=== PATIENT | female | born 1975 | race Caucasian/White ===

== ENCOUNTER → 2017-07-09 | Outpatient (CLI) | payer BC ==
[~2017-07-09] MED LIST: CHOL100010 PO; PRENTAB26 PO
== END | disposition home or self-care (01) ==
LOC: C.PAPS 15:58
PROVIDERS: ATTEND Obstetrics & Gynecology
DX: O09.521 Supervision of elderly multigravida, first trimester (principal); E66.01 Morbid (severe) obesity due to excess calories; Z3A.00 Weeks of gestation of pregnancy not specified

== ENCOUNTER → 2017-07-09 | Outpatient (CLI) | payer BC ==
[2017-07-09 15:43] LABS: BASO % 0.1 %; BASO ABS # 0.01 K/uL (0-0.2); COMPLETE YES; EOS % 2.6 %; HEMATOCRIT 35.4 % (37-47); IG% 0.1 %; LYMPH % 21.1 %; LYMPH ABS # 1.78 K/uL (1.2-3.4); MEAN CELL VOLUME 83.3 fL (80-100); MEAN CORPUSCULAR HEMOGLOBIN 27.1 pg (25-34); MEAN CORPUSCULAR HGB CONC 32.5 g/dl (32-36); MEAN PLATELET VOLUME 10.2 fL (7.4-10.4); MONO % 7.6 %; NEUT % 68.5 %; PLATELET COUNT 273 K/uL (130-400); RED BLOOD COUNT 4.25 M/uL (4.2-5.4); WHITE BLOOD COUNT 8.43 K/uL (4.8-10.8)
[2017-07-09 16:34] LABS: URINE APPEARANCE CLOUDY (CLEAR); URINE BILIRUBIN NEG (NEG); URINE COLOR YELLOW; URINE NITRITE NEG (NEG); URINE PH 5.5 (4.5-7.5); URINE SPECIFIC GRAVITY >= 1.030 (1.000-1.030); UROBILINOGEN NEG (NEG)
[2017-07-09 16:35] LABS: MANUAL MICROSCOPIC REQUIRED? NO; REVIEW REQ? NO
[2017-07-13 10:23] LABS: CHLAMYDIA TRACH RNA*** NOT DETECTED (NOT DETECTED); GC (NEIS GONORRHOEAE)RNA** NOT DETECTED (NOT DETECTED)
== END | disposition home or self-care (01) ==
LOC: C.LAB1850 14:52
PROVIDERS: ATTEND Obstetrics & Gynecology
DX: O09.521 Supervision of elderly multigravida, first trimester (principal); Z3A.00 Weeks of gestation of pregnancy not specified

== ENCOUNTER → 2017-08-27 | Outpatient (CLI) | payer BC ==
[2017-08-27 11:33] LABS: GTGD 50 Grams
[2017-08-31 15:59] LABS: AFP CONCENTRATION 17.7 NG/ML; AFP MULTIPLE OF MEDIAN 0.72; AFPTS GESTATIONAL AGE 16.7 WEEKS; AFPTS INSULIN DEP DIABETIC? NO; AFPTS MATERNAL WT 292 LBS; ALPHA-FETOPROTEIN RACE CAUCASIAN=W; HISTORY OF NTD NO; REPEAT SAMPLE? NO
== END | disposition home or self-care (01) ==
LOC: C.LAB1850 09:11
PROVIDERS: ATTEND Obstetrics & Gynecology
DX: O09.522 Supervision of elderly multigravida, second trimester (principal); Z3A.00 Weeks of gestation of pregnancy not specified

== ENCOUNTER → 2017-11-18 | Outpatient (CLI) | payer BC ==
[2017-11-18 10:38] LABS: HEMATOCRIT 31.5 % (37-47)
[2017-11-18 10:55] LABS: GTGD 50 Grams
[2017-11-18 12:19] LABS: URINE APPEARANCE CLOUDY (CLEAR); URINE BILIRUBIN NEG (NEG); URINE COLOR YELLOW; URINE EPITHELIAL CELL AUTO >30 /lpf (0-5); URINE NITRITE NEG (NEG); URINE SPECIFIC GRAVITY 1.024 (1.000-1.030); UROBILINOGEN NEG (NEG)
[2017-11-18 12:29] LABS: MANUAL MICROSCOPIC REQUIRED? NO; REVIEW REQ? YES
== END | disposition home or self-care (01) ==
LOC: C.LAB1850 09:36
PROVIDERS: ATTEND Obstetrics & Gynecology
DX: O09.523 Supervision of elderly multigravida, third trimester (principal); Z3A.00 Weeks of gestation of pregnancy not specified

== ENCOUNTER 2018-01-12 10:28 | Outpatient (CLI) | payer BC ==
[~2018-01-12] VITALS: Ht 170.2 cm; Wt 141.2 kg
[2018-01-12 11:16] VITALS: Ht 170.2 cm; Wt 141.2 kg
--- NOTE | 2018-01-14 09:27 | EDITING REQUIRED CODING QUERY ---
DIAGNOSIS NEEDED To promote full compliance with coding requirements relating to patient care, physician participation is requested in all cases of quality control uncertainty. Please assist us with the question(s) below: Coding Question: The patient received care in labor and delivery on 01/12/18 as noted within the record. Please document the diagnosis that is being addressed by the medication/treatment. Provider Response: DIAGNOSIS: Advanced maternal age WEEKS OF GESTATION: Thank you for your assistance, Aby Brandt - Safety Equipment Tester
[2018-02-04] MEDS ORDERED: IRON PO (09:49)
[2018-02-04] MEDS ORDERED: DOCU-94 PO (09:49)
== END 2018-01-12 11:18 | disposition home or self-care (01) ==
LOC: C.OPB 10:28 → C.LD 10:28 → C.OPB 11:18
PROVIDERS: ATTEND Obstetrics & Gynecology
DX: O09.529 Supervision of elderly multigravida, unspecified trimester (principal); Z3A.00 Weeks of gestation of pregnancy not specified

== ENCOUNTER → 2018-01-12 | Outpatient (CLI) | payer BC | END | disposition home or self-care (01) | LOC: C.LABSPEC 13:44 | PROVIDERS: ATTEND Obstetrics & Gynecology | DX: O09.523 Supervision of elderly multigravida, third trimester (principal) ==

== ENCOUNTER 2018-01-20 10:50 | Outpatient (CLI) | payer BC ==
--- NOTE | 2018-01-22 09:38 | EDITING REQUIRED CODING QUERY ---
DIAGNOSIS NEEDED To promote full compliance with coding requirements relating to patient care, physician participation is requested in all cases of soda drier feeder uncertainty. Please assist us with the question(s) below: Coding Question: The patient received care in labor and delivery on 01/20/18 as noted within the record. Please document the diagnosis that is being addressed by the medication/treatment. Provider Response: DIAGNOSIS:morbid obesity Advanced maternal age WEEKS GESTATION: 37 weeks Thank you for your assistance, Aby Brandt - Salvage Worker
[2018-02-04] MEDS ORDERED: IRON PO (09:49)
[2018-02-04] MEDS ORDERED: DOCU-94 PO (09:49)
== END 2018-01-20 11:35 | disposition home or self-care (01) ==
LOC: C.OPB 10:50 → C.LD 10:50 → C.OPB 11:35
PROVIDERS: ATTEND Obstetrics & Gynecology
DX: O09.523 Supervision of elderly multigravida, third trimester (principal); O99.213 Obesity complicating pregnancy, third trimester; E66.01 Morbid (severe) obesity due to excess calories; Z3A.37 37 weeks gestation of pregnancy

== ENCOUNTER 2018-01-25 17:06 | Outpatient (CLI) | payer BC ==
[2018-02-04] MEDS ORDERED: DOCU-94 PO (09:49)
[2018-02-04] MEDS ORDERED: IRON PO (09:49)
== END 2018-01-25 17:35 | disposition home or self-care (01) ==
LOC: C.OPB 17:06 → C.LD 17:07 → C.OPB 17:07 → C.LD 17:08 → C.OPB 17:35 → C.LD 17:35
PROVIDERS: ATTEND Obstetrics & Gynecology
DX: O09.523 Supervision of elderly multigravida, third trimester (principal); O99.213 Obesity complicating pregnancy, third trimester; E66.9 Obesity, unspecified; Z3A.00 Weeks of gestation of pregnancy not specified

== ENCOUNTER 2018-01-28 09:50 | Outpatient (CLI) | payer BC ==
--- NOTE | 2018-01-28 14:23 | DIAGNOSTIC IMAGING REPORT ---
BIO PROF W/O NST-SINGLE CLINICAL HISTORY: Possible variable decels on NST. Pt is AMA, Obese, 38+ weeks. TECHNIQUE: Ultrasound biophysical profile COMPARISON STUDY: None FINDINGS: biophysical profile is normal with a score of 8 out of a possible 8. Fetus is cephalic in presentation. Amniotic fluid index is 19 cm. Placenta is anterior. heart rate is 145 bpm IMPRESSION: Normal biophysical profile with a score of 8 out of a possible 8. The above report was generated using voice recognition software. It may contain grammatical, syntax or spelling errors. Electronically signed by: Jason Jhaveri M.D. 01/28/2018 2:22 PM Dictated Date/Time: 01/28/2018 2:19 PM
[2018-02-04] MEDS ORDERED: IRON PO (09:49)
[2018-02-04] MEDS ORDERED: DOCU-94 PO (09:49)
== END 2018-01-28 14:32 | disposition home or self-care (01) ==
LOC: C.OPB 09:50 → C.LD 09:51 → C.OPB 14:32
PROVIDERS: ATTEND Obstetrics & Gynecology
DX: O09.529 Supervision of elderly multigravida, unspecified trimester (principal); O99.210 Obesity complicating pregnancy, unspecified trimester; E66.01 Morbid (severe) obesity due to excess calories; Z3A.00 Weeks of gestation of pregnancy not specified

== ENCOUNTER 2018-02-01 17:00 | Outpatient (CLI) | payer BC ==
[2018-02-04] MEDS ORDERED: DOCU-94 PO (09:49)
[2018-02-04] MEDS ORDERED: IRON PO (09:49)
== END 2018-02-01 17:35 | disposition home or self-care (01) ==
LOC: C.LD 17:00 → C.OPB 17:00
PROVIDERS: ATTEND Obstetrics & Gynecology
DX: O09.529 Supervision of elderly multigravida, unspecified trimester (principal); O99.210 Obesity complicating pregnancy, unspecified trimester; E66.9 Obesity, unspecified; Z3A.00 Weeks of gestation of pregnancy not specified

== ENCOUNTER 2018-02-04 11:11 | Outpatient (CLI) | payer BC ==
[~2018-02-04 11:11] MED LIST changes: +DOCU-94 PO; +IRON PO
--- NOTE | 2018-02-11 13:06 | EDITING REQUIRED CODING QUERY ---
DIAGNOSIS NEEDED To promote full compliance with coding requirements relating to patient care, physician participation is requested in all cases of vascular manager uncertainty. Please assist us with the question(s) below: Coding Question: The patient received care in labor and delivery on 02/04/18 as noted within the record. Please document the diagnosis that is being addressed by the medication/treatment. Provider Response: DIAGNOSIS: Previous WEEKS GESTATION: Thank you for your assistance, Aby Brandt - Public Relations Account Supervisor
== END 2018-02-04 11:40 | disposition home or self-care (01) ==
LOC: C.LD 11:11 → C.OPB 11:11
PROVIDERS: ATTEND Obstetrics & Gynecology
DX: O26.899 Other specified pregnancy related conditions, unspecified trimester (principal); Z3A.00 Weeks of gestation of pregnancy not specified

== ENCOUNTER 2018-02-05 07:12 | Inpatient (IN) | payer BC ==
--- NOTE | 2018-02-04 10:10 | PAT Medication Instructions ---
Service Date Feb 04, 2018. Current Home Medication List Docusate Sodium (Colace), 2 CAP PO QPM Multivit/Min/Iron/Fol Ac/Pren ( Vitamin), 1 TAB PO QPM [Iron], 1 TAB PO QPM Medication Instructions For Your Scheduled Surgery - Take the following medications as scheduled the night before surgery: Docusate Sodium (Colace), 2 CAP PO QPM Multivit/Min/Iron/Fol Ac/Pren ( Vitamin), 1 TAB PO QPM [Iron], 1 TAB PO QPM If you have any questions please call us at [phone] or [phone] or [phone]
[2018-02-04 10:28] LABS: BASO % 0.1 %; BASO ABS # 0.01 K/uL (0-0.2); EOS % 2.2 %; EOS ABS # 0.22 K/uL (0-0.5); HEMATOCRIT 33.7 % (37-47); HEMOGLOBIN 11.3 g/dL (12.0-16.0); IG# 0.05 K/uL (0.00-0.02); LYMPH % 16.3 %; LYMPH ABS # 1.64 K/uL (1.2-3.4); MEAN CELL VOLUME 85.8 fL (80-100); MEAN CORPUSCULAR HEMOGLOBIN 28.8 pg (25-34); MEAN CORPUSCULAR HGB CONC 33.5 g/dl (32-36); MONO % 8.1 %; MONO ABS # 0.82 K/uL (0.11-0.59); NEUT % 72.8 %; NEUT ABS # 7.35 K/uL (1.4-6.5); PLATELET COUNT 182 K/uL (130-400); RED CELL DISTRIBUTION WIDTH CV 15.7 % (11.5-14.5); RED CELL DISTRIBUTION WIDTH SD 49.4 fL (36.4-46.3); WHITE BLOOD COUNT 10.09 K/uL (4.8-10.8)
--- NOTE | 2018-02-04 18:07 | HISTORY & PHYSICAL EXAMINATION ---
DATE OF ADMISSION: 02/05/2018 PRINCIPAL DIAGNOSES: Intrauterine at 39+ weeks, prior section, undesired fertility, and multiparity. PROCEDURE: Repeat low transverse cervical section and bilateral tubal ligation. HISTORY OF PRESENT ILLNESS: The patient is a 42-year-old 5, para 1-0-3-1 white female who presents at 39 and 6/7 weeks for repeat section. Her prior section was done for failure to progress at 41 weeks gestation with delivery of an 8 pounds 5 ounces infant. She is now scheduled for repeat section and bilateral tubal ligation for undesired fertility and multiparity. She understands the risks of the procedure and is willing to proceed. PAST MEDICAL HISTORY: Significant for a prior history of -induced hypertension. 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 She also had a D&C in 2013 for a miscarriage. In 2011 section because of failure to progress for delivery of a viable female infant, 8 pounds 5 ounces. No complications with any of her surgeries in the past. ALLERGIES: PENICILLIN. She had a reaction as an ; however, she is able to use cefazolin, which was used prophylactically for her last section without any reaction. SOCIAL HISTORY: She does not smoke or drink. FAMILY HISTORY: Noncontributory. HISTORY: Blood type is A positive. Antibody screen is negative. Rubella is immune. RPR is nonreactive. Hepatitis is negative. HIV is negative. Pap smear was within normal limits. Chlamydia and GC are negative. Cell free DNA was low risk. Hemoglobin at 28 weeks was 10.5 and hematocrit 31.5. GBS is negative. She has had a growth scan at 32 weeks because of morbid obesity. She has had nonstress tests that have been reactive. She has had a echo which was difficult to see the heart anatomy well; however, there is a question of a small VSD. Cardiology is saying it is okay to deliver at [facility] with a follow of the echo, a follow up echo after delivery. Anatomy scan was normal except for being unable to see the heart anatomy well, which resulted in the multiple echoes. AFIs done because of advanced maternal age were also within normal limits and those were started at 38 weeks. PHYSICAL EXAMINATION: VITAL SIGNS: Blood pressure is 136/90 today. LUNGS: Clear to auscultation and percussion. HEART: Regular rate and rhythm. No murmurs or gallops. ABDOMEN: Gravid, fundal height is difficult to assess because of maternal obesity. She has a well-healed low transverse skin incision abdominally. There is no hepatosplenomegaly or masses otherwise palpable. PELVIC: Pelvic exam was deferred. EXTREMITIES: With trace edema and no calf tenderness. ASSESSMENT: A 42-year-old 5, para 1-0-3-1 white female who presents for repeat section and bilateral tubal ligation. She understands the risks of procedure and is willing to proceed. Please see the orders for further directions.
[~2018-02-05] VITALS: Ht 170.2 cm; Wt 142.0 kg
[2018-02-05] VITALS (7 sets, daily range): BP systolic 110–128; BP diastolic 70–80; PULSE 69–75; TEMP 36.7–37; O2SAT 94–99; Ht 170.2 cm; Wt 142.0 kg
[~2018-02-05 07:12] MED LIST changes: -CHOL100010 PO
--- NOTE | 2018-02-05 07:36 | History & Physical Bridge Note ---
H&P Re-Evaluation Bridge Note: I have examined the patient, reviewed the History & Physical and in the interval since the performance of the History & Physical I have noted the following changes of clinical significance: No changes noted
[2018-02-05] MEDS ORDERED: CITRIC ACID/SODIUM CITRATE 15 ML UDC PO ONE (08:15)
[2018-02-05] MEDS ORDERED: CEFAZOLIN IV 3,000 MG in SYRINGE 0 ML IV STA (08:31)
[2018-02-05] MEDS ORDERED: LACTATED RINGER'S 1000ML 1,000 ML IV PRN (09:00)
[2018-02-05] MEDS ORDERED: NURSING VERBAL MED ORDER ONE ×2 (09:00→21:45)
[2018-02-05] MEDS ORDERED: FENTANYL CITRATE INJ 50 MCG/1 ML 2 ML VIAL ONE (09:53)
[2018-02-05] MEDS ORDERED: MoRPHine SULFATE PF 1 MG/ML 10 ML AMP/VIAL ONE (09:54)
[2018-02-05] MEDS ORDERED: OXYTOCIN INJ 10 UNITS/ML VIAL ONE (09:56)
[2018-02-05] MEDS ORDERED: PHENYLEPHRINE HCL INJ 10 MG/ML VIAL ONE (09:57)
[2018-02-05] MEDS ORDERED: CITRIC ACID/SODIUM CITRATE 15 ML UDC ONE (10:18)
[2018-02-05] MEDS ORDERED: EpHEDrine SULFATE 50MG/5ML SYR ONE (11:57)
[2018-02-05] MEDS ORDERED: SENNA 8.6 MG TAB PO PRN (12:00)
[2018-02-05] MEDS ORDERED: LACTATED RINGER'S 1000ML 1,000 ML IV SCH (12:00)
[2018-02-05] MEDS ORDERED: LANOLIN OINT EXT PRN (12:00)
[2018-02-05] MEDS ORDERED: MAGNESIUM HYDROXIDE SUSP 30 ML UDC PO PRN (12:00)
[2018-02-05] MEDS ORDERED: DC PCA PRN (12:00)
--- NOTE | 2018-02-05 12:01 | [facility] Post Operative Brief Note ---
Immediate Operative Summary Operative Date Feb 05, 2018. Pre-Operative Diagnosis Intrauterine 39+ weeks, prior Section, undesired fertility and multiparity. Post-Operative Diagnosis same plus delivery of viable male infant Procedure(s) Performed Section with Bilateral Tubal Ligation Live male child delivered at [address] Vasquez Floor Space Allocator Surgeon(s) Darlene Torres Estimated Blood Loss 800 Findings See Below right ovary is very small otherwise normal adnexa & uterus Fluids (cc crystalloids) 2000 Specimens Placenta Cord Blood R/L Fallopian Tube Segments Drains Parks to straight drainage, clear urine at end of case Anesthesia Type Spinal Complication(s) none Disposition Accompanied Pt To Recover: yes Disposition: L&D
[2018-02-05] MEDS ORDERED: NALOXONE HCL INJ 0.08 MG in SYRINGE 1.8 ML IV PRN (12:14)
[2018-02-05] MEDS ORDERED: SODIUM CHLORIDE 0.9% 1000ML 1,000 ML IV PRN (12:14)
[2018-02-05] MEDS ORDERED: LACTATED RINGER'S 1000ML 500 ML IV PRN (12:14)
[2018-02-05] MEDS ORDERED: NALOXONE HCL INJ 1 MG in SODIUM CHLORIDE 0.9% 1000ML 1,000 ML IV PRN ×4 (12:14)
[2018-02-05] MEDS ORDERED: ONDANSETRON INJ 2 MG/ML 2 ML VIAL IV PRN (12:15)
[2018-02-05] MEDS ORDERED: EpHEDrine SULFATE INJ 50 MG/ML AMP IV PRN (12:15)
[2018-02-05] MEDS ORDERED: NO NARCOTICS OR SEDATIVES SCH (12:15)
[2018-02-05] MEDS ORDERED: DiphenhydrAMINE HCL 50 MG/ML VIAL IV PRN (12:15)
[2018-02-05] MEDS ORDERED: NALBUPHINE HCL INJ 10 MG/ML AMP IV PRN (12:15)
[2018-02-05] MEDS ORDERED: NALOXONE HCL 0.4 MG/1 ML VIAL/CARP IV PRN (12:15)
[2018-02-05] MEDS ORDERED: PROMETHAZINE HCL INJ 25 MG in SODIUM CHLORIDE 0.9% 50ML 50 ML IV PRN (12:15)
[2018-02-05] MEDS ORDERED: MoRPHine SULFATE PF 1 MG/ML 10 ML AMP/VIAL EPI PRN (12:15)
--- NOTE | 2018-02-05 12:52 | Anesthesiology Progress Note ---
Anesthesia Post Op Note Date & Time Feb 05, 2018 at 12:50 Notes Mental Status: alert / awake / arousable, participated in evaluation Pt Amnestic to Procedure: No Nausea / Vomiting: adequately controlled Pain: adequately controlled Airway Patency, RR, SpO2: stable & adequate BP & HR: stable & adequate Hydration State: stable & adequate Neuraxial Anesthesia: was administered, sensory block is resolving Anesthetic Complications: no major complications apparent pt level at T 11-L1
[2018-02-05] MEDS: SIMETHICONE 80 MG CHEW PO SCH ×2 (13:00→20:05)
[2018-02-05] MEDS: OXYTOCIN INJ 20 UNITS in LACTATED RINGER'S 1000ML 1,000 ML IV SCH ×2 (13:58→22:50)
[2018-02-05] MEDS: KETOROLAC TROMETHAMINE 30 MG/ML VIAL IV. PRN (17:59)
--- NOTE | 2018-02-05 19:34 | OPERATIVE REPORT ---
DATE OF OPERATION: 02/05/2018 SURGEON: Hannah Vasquez MD ASSISTANTS: Jacqueline Cloud MD; Darlene Huertas, PGY-1 PRINCIPLE DIAGNOSES: Intrauterine at 39+ weeks, prior section, undesired fertility, and multiparity. POSTOPERATIVE DIAGNOSES: Same, plus delivery of a viable male infant, 8 pounds 10 ounces. PROCEDURE: Repeat low transverse cervical section and bilateral modified Romain tubal ligation. ESTIMATED BLOOD LOSS: 800 mL. ANESTHESIA: Subarachnoid block. HISTORY: The patient is a 42-year-old 5, para 1-0-3-1 white female who presents at 39 and 6/7 weeks for repeat section. Her prior section was done for failure to progress at 41 weeks. She is now scheduled for repeat section and bilateral tubal ligation. She understands the risks of procedure including the risk for future pregnancies both ectopic and intrauterine, and she is willing to proceed. GROSS FINDINGS: Uterus is gravid and consistent with a term and size. Bilateral fallopian tubes are normal. The right ovary is somewhat atrophic, consistent with a prior ovarian cystectomy. Left ovary is within normal limits. DESCRIPTION OF PROCEDURE: After patient received adequate subarachnoid block, she was prepped and draped in usual sterile fashion. A low transverse skin incision was made with a scalpel and carried to the fascia with the same scalpel. The fascial incision was then extended with Zafar scissors. The underlying rectus muscles were then bluntly and sharply dissected off of the overlying fascia. The rectus muscles were divided on the midline by first dividing them with a hemostat and then after the rectus muscles were from the peritoneum from below, a scalpel was used to separate rectus muscles on the midline. The peritoneum was then elevated and entered bluntly. The bladder was then taken down off the anterior surface of the uterus and placed behind the bladder blade. Low uterine segment was entered with a scalpel and extended transversely. There was a significant amount of amniotic fluid and some bleeding from the uterine incision. To assist in delivering the infant, a vacuum was applied to the head. With moderate fundal pressure and gentle traction, the was delivered through the uterine incision. Mouth and nasopharynx were suctioned upon delivery of the head. There was a loose body cord which was reduced after delivery. There was spontaneous crying and the was moving all 4 limbs. The cord was clamped and cut and the was handed off to Dr. Grimm who was in attendance as forensic anthropologist. The placenta was then manually removed and the uterus exteriorized and covered with a clean lap sponge. The cavity was explored and found to be free of membranes, but there was some retained membranes close to the cervix, this was removed with a ring forceps. The uterus was then closed in 2 layers in a running-locking imbricating fashion with 0 Monocryl. Hemostasis was noted to be excellent. The right fallopian tube was identified and followed to its fimbriated end. It was then grasped in the mid portion with a Crete clamp. The tube was under some tension. The proximal portion of the tube was suture ligated and the knuckle of tube was developed catching the distal portion of the tube beyond the Linh. A second suture ligature was used to secure the first. The knuckle of tube was removed with Metzenbaum scissors. The tubal site then and each of the tubal portions were then grasped with hemostats and then again suture ligated with 3-0 plain catgut. At this point, hemostasis was excellent. The left fallopian tube was identified, it too was suture ligated with 3-0 plain catgut. The knuckle of tube was developed. A second tie of 3-0 plain catgut was used to secure the first. The knuckle of tube was removed and again the tubal resection site . The ends of the tubal resection were then grasped with hemostats and free ties were placed on the ends of both of the resected tube. Hemostasis noted to be excellent. After irrigating the posterior cul-de-sac with normal saline, the uterus was placed gently back into the abdominal cavity. The tubal sites were examined once more and found to have excellent hemostasis. The anterior cul-de-sac was freed of some fluid and clot and irrigated as well with normal saline. Noting that the uterine incision continued to have excellent hemostasis, the fascia was then closed in a running fashion with 0 Vicryl. The Bennett's fascia was then brought together with 3-0 chromic after irrigating the adipose layer. After closure of Bennett's fascia, the adipose layer was irrigated once again. [place] were used to close the skin. Urine was clear at the end of the case. The patient tolerated the procedure well and was stable upon arrival in recovery room. I attest to the content of the Intraoperative Record and any orders documented therein. Any exception s are noted below.
[2018-02-05] MEDS ORDERED: DOCUSATE SODIUM 100 MG CAP PO SCH (20:00)
[2018-02-05] MEDS: DOCUSATE SODIUM 100 MG CAP PO SCH (21:27)
[2018-02-05] MEDS: PRENATAL VITAMIN TAB PO SCH (21:28)
[2018-02-05] MEDS ORDERED: LACTATED RINGER'S 1000ML 500 ML IV ONE (22:15)
[2018-02-06] VITALS (9 sets, daily range): BP systolic 105–123; BP diastolic 66–76; PULSE 76–102; TEMP 36.5–36.9; O2SAT 92–97
[2018-02-06] MEDS: KETOROLAC TROMETHAMINE 30 MG/ML VIAL IV. PRN (03:35)
[2018-02-06] MEDS ORDERED: DC INTRASPINAL MORPHINE SCH (05:30)
[2018-02-06] MEDS ORDERED: KETOROLAC TROMETHAMINE 30 MG/ML VIAL IV. PRN (05:31)
[2018-02-06] MEDS ORDERED: MEPERIDINE HCL 50 MG/ML CARP IV PRN ×2 (05:31)
[2018-02-06] MEDS ORDERED: DiphenhydrAMINE HCL 50 MG/ML VIAL IV PRN (05:31)
[2018-02-06] MEDS ORDERED: PROMETHAZINE HCL INJ 25 MG in SODIUM CHLORIDE 0.9% 50ML 50 ML IV PRN (05:31)
[2018-02-06] MEDS ORDERED: ONDANSETRON INJ 2 MG/ML 2 ML VIAL IV PRN (05:31)
[2018-02-06] MEDS ORDERED: OXYCODONE/ACETAMINOPHEN 5-325 TAB PO PRN (05:31)
[2018-02-06] MEDS ORDERED: NURSING VERBAL MED ORDER ONE (05:45)
[2018-02-06] MEDS ORDERED: CEFAZOLIN IV 3,000 MG in DEXTROSE 5% 50ML 50 ML IV SCH (06:00)
[2018-02-06] MEDS ORDERED: LACTATED RINGER'S 1000ML 1,000 ML IV SCH (06:15)
--- NOTE | 2018-02-06 07:51 | Progress Note ---
Subjective Feb 06, 2018. Subjective conversation w/ patient, physical exam Ambulation: limited ambulation Voiding: maurice catheter in place (to be removed this AM) Passing Gas: Yes Diet Tolerance: Clear Liquids, Regular Diet (transitioning today) Lochia: Small Feeding Type: Bottle Feeding Pain: Minimal pain reported Comment: Pt seen and assessed at bedside; no acute events overnight Review of Systems Constitutional: No fever, No chills, No sweats Respiratory: No cough, No shortness of breath Cardiac: + edema, No chest pain Abdomen: No pain, No nausea, No vomiting Female : No problem reported No headache or calf pain reported Objective Vital Signs Date Time Temp Pulse Resp B/P (MAP) Pulse Ox O2 Delivery O2 Flow Rate FiO2 02/06/18 05:30 20 95 02/06/18 04:45 16 92 02/06/18 03:40 36.9 76 20 105/70 (82) 95 Room Air 02/06/18 03:40 20 95 02/06/18 02:30 18 94 02/06/18 01:10 16 93 02/06/18 00:10 16 93 02/05/18 23:10 96 Room Air 02/05/18 23:10 36.9 73 18 110/70 (83) 96 Room Air 02/05/18 23:10 18 96 02/05/18 22:30 16 94 02/05/18 21:30 18 95 02/05/18 20:25 36.7 69 20 123/80 (94) 99 Room Air 02/05/18 20:05 20 98 02/05/18 19:30 20 98 02/05/18 18:00 Room Air 02/05/18 18:00 37.0 75 16 128/75 (92) Physical Exam General Appearance: WELL-APPEARING, WD/WN Respiratory/Chest: chest non-tender, lungs clear, normal breath sounds Cardiovascular: regular rate, rhythm, no murmur Abdomen: normal bowel sounds, non tender, soft Fundus: Firm, Non-Tender, Relation to Umbilicus (3 below) Incision Description: Clean, Dry & Intact Extremities: normal range of motion, non-tender, normal inspection, no calf tenderness, + pedal edema (1-2+ bilat) Laboratory Results Last Resulted 02/04/18 10:15 Red Blood Count 3.93, Mean Corpuscular Volume 85.8, Mean Corpuscular Hemoglobin 28.8, Mean Corpuscular Hemoglobin Concent 33.5, Mean Platelet Volume 10.0, Neutrophils (%) (Auto) 72.8, Lymphocytes (%) (Auto) 16.3, Monocytes (%) (Auto) 8.1, Eosinophils (%) (Auto) 2.2, Basophils (%) (Auto) 0.1, Neutrophils # (Auto) 7.35, Lymphocytes # (Auto) 1.64, Monocytes # (Auto) 0.82, Eosinophils # (Auto) 0.22, Basophils # (Auto) 0.01 Medications Current Inpatient Medications Medications (Trade) Dose Ordered Sig/Ana M Route Start Time Stop Time Status Last Admin Dose Admin Lactated Ringer's 1,000 ml @ 125 mls/hr Q8H IV 02/05/18 12:00 03/07/18 11:59 Ketorolac Tromethamine (Toradol Inj) 30 mg Q6H PRN IV. 02/06/18 05:31 02/10/18 11:59 Meperidine HCl (Demerol Inj) 50 mg Q4H PRN IV 02/06/18 05:31 02/20/18 05:30 Meperidine HCl (Demerol Inj) 75 mg Q4H PRN IV 02/06/18 05:31 02/20/18 05:30 Oxycodone/ Acetaminophen (Percocet 5-325mg Tab) 1 tab Q4H PRN PO 02/06/18 05:31 02/20/18 05:30 Oxycodone/ Acetaminophen (Percocet 5-325mg Tab) 2 tab Q4H PRN PO 02/06/18 05:31 02/20/18 05:30 Ibuprofen (Motrin Tab) 600 mg Q4H PRN PO 02/05/18 12:00 03/07/18 11:59 Promethazine HCl 25 mg/Sodium Chloride 51 ml @ 204 mls/hr Q4H PRN IV 02/06/18 05:31 03/08/18 05:30 Ondansetron HCl (Zofran Inj) 4 mg Q4H PRN IV 02/06/18 05:31 03/08/18 05:30 02/05/18 17:51 4 MG Bisacodyl (Dulcolax Tab) 5 mg HS ONCE PO 02/06/18 22:00 02/06/18 22:01 Bisacodyl (Dulcolax Supp) 10 mg TODAY@0700 PRN [place] 02/07/18 07:00 02/07/18 23:59 Magnesium Hydroxide (Milk Of Magnesia Susp) 30 ml HS PRN PO 02/05/18 12:00 03/07/18 11:59 Ferrous Sulfate (Feosol Tab) 325 mg DAILY PO 02/06/18 08:00 03/08/18 07:59 Lanolin (Lanolin Oint) PRN PRN EXT 02/05/18 12:00 03/07/18 11:59 Simethicone (Mylicon Chew Tab) 80 mg QID PO 02/05/18 13:00 03/07/18 12:59 02/05/18 20:05 80 MG Diphenhydramine HCl (Benadryl Cap) 25 mg QID PRN PO 02/06/18 05:31 03/08/18 05:30 Diphenhydramine HCl (Benadryl Inj) 25 mg QID PRN IV 02/06/18 05:31 03/08/18 05:30 Senna (Senokot Tab) 17.2 mg HS PRN PO 02/05/18 12:00 03/07/18 11:59 Docusate Sodium (coLACE CAP) 200 mg QPM PO 02/05/18 21:00 03/07/18 20:59 02/05/18 21:27 200 MG Prenat Multivit/ [place]/Iron/Folic Ac ( Vitamin Tab) 1 tab QPM PO 02/05/18 21:00 03/07/18 20:59 02/05/18 21:28 1 TAB Dimenhydrinate (Dramamine Tab) 25 mg Q6 PRN PO 02/05/18 17:15 03/07/18 17:14 02/05/18 17:11 25 MG Assessment and Plan Post-Op Day#: 1 Continue Routine Care: Resident Physician Supervision Note: I was present with Dr. Huertas during the history and exam. I discussed the case with the resident and agree with the findings and plan as documented in the note. Any exceptions or clarifications are listed here: [None] Documented By: Hannah Bailey In my clinical judgment this beneficiary meets acute admission criteria, established by [facility], that includes being hospitalized through two midnights.42yo F POD #1 s/p elective delivery and tubal ligation Continue routine care Pt doing well clinically, nausea and dizziness have subsided Encourage ambulation Pain control with Rx pain prn Discharge 1-2 days Staple removal in office on February 10 Resident Tracking Resident Involvement: Resident Care Provided Care Provided: OB Delivery
[2018-02-06] MEDS ORDERED: PRENATAL VITAMIN TAB PO SCH (08:00)
--- NOTE | 2018-02-06 08:01 | Discharge Instructions ---
Discharge Instructions Date of Service Feb 06, 2018. Admission Reason for Admission: Previous Delivery, Desires Sterilization Discharge Discharge Diagnosis / Problem: s/p elective delivery and tubal ligation Discharge Goals Goal(s): Routine recovery after Medications Continue Dispensed Medications: lansinoh Activity Recommendations Activity Limitations: per Instructions/Follow-up section . Instructions / Follow-Up Instructions / Follow-Up ACTIVITY RECOMMENDATIONS: * Gradual return to full activity over the next 2-3 weeks. * No lifting - nothing heavier than baby over the next 2-3 weeks. * Do not engage in vigorous exercise, sexual activity or sports until cleared by your physician. * Do not drive or operate any motorized equipment until cleared by your physician. * You may shower/bathe daily. MEDICATIONS: For discomfort or pain, you may use Acetaminophen (Tylenol), Ibuprofen (Advil), or Naproxen (Aleve) following the package directions. For constipation you may use Colace following the package directions. BREAST CARE: If you are not breast feeding: * Wear a supportive bra 24 hours a day for one to two weeks. * Avoid stimulating your breasts and nipples as much as possible during the first few weeks after delivery. * When taking a shower, have the warm water hit your back, not breasts. * When your breasts feel full, apply ice packs. Usually three to four times a day helps ease the discomfort. * Take a mild pain medication (Tylenol / Motrin) when you are uncomfortable. If breast feeding: * Use breast milk to lubricate nipples. Lansinoh cream may be used for sore nipples. You do not need to remove cream prior to breast feeding. If using a different brand of cream, check the label for directions regarding removal of cream prior to nursing. * Wear a supportive bra. * If having problems with breasts or breast feeding, call a integration consultant or your health care provider. SPECIAL CARE INSTRUCTIONS: When you are discharged from the hospital, it is important for you to follow the instructions listed below: * During the first week at home, you should be able to care for yourself and your baby. In addition, the usual light household activities are encouraged. * Limit your activities to the way you feel. Do not try to clean the house or move furniture. Be sensible. * If you actively engage in sports and have done so up until the time of your delivery, you may resume these activities as soon as you feel able. This may take up to one month or even longer. Use good judgment. * Continue to take your vitamins for at least six weeks after the of your baby. * Your diet need not be limited unless you were on a special diet before your delivery. Breast-feeding mothers need around 2500 calories per day and at least 64-80 ounces of fluid per day (8 to 10 glasses). * You should eat foods from the four major food groups. Crash diets or fad diets are to be avoided. Eating lean meats, fresh fruits and vegetables, low-fat dairy products, high fiber foods and a regular exercise program, will help you get back to your pre- weight without putting your health at risk. * Constipation is sometimes a problem after delivery. Take a mild laxative as needed. If breast feeding, Milk of Magnesia is acceptable to use. You may use a suppository or Fleets enema. * A daily shower or tub bath is suggested. Wash incision daily with warm soapy water and pat dry. It doesn't need to be covered unless drainage is present. * A bloody vaginal discharge will usually continue until around four weeks . A small amount of bleeding may continue for as long as six weeks. Vaginal discharge changes from the bright red bleeding after delivery to pink then brownish and finally yellowish-pink before becoming white and disappearing. * Bleeding may increase with activity. Your first period may come in 4-8 weeks. If you are breast feeding, your period may be delayed even longer. * [place] (sex) can begin whenever both you and your partner feel comfortable and do not have any form of genital infection. It is recommended that you wait at least six weeks for internal and external healing to occur. If you have questions, please talk to your health care practitioner. A condom should be used to prevent infection and . * Foreplay, gentle intercourse and lubrication is very important the first several times to prevent pain. A water-based lubricant such as K-Y jelly or Astroglide may be used. * If you have RH negative blood and your baby is RH positive, you will receive RHOGAM by injection prior to discharge. The nurse will give you a card to keep with you that has the date and place that you received RHOGAM after delivery. * During your care, you had a Rubella screen done to check for the presence of rubella antibodies in your blood. If your test was negative, you will receive a Rubella vaccine prior to discharge. This vaccine may cause a fever, soreness at the injection site and flu-like symptoms. If these symptoms persist, notify your health care practitioner. is not advised for one month after a Rubella vaccine. * Verbalizes understanding of car seat law as reviewed with patient nursing. * Car Seat hand-out given and reviewed with patient by nursing. * Shaken baby information reviewed with patient by nursing. Call you doctor if: * Heavy bleeding (saturating several pads an hour) or passing clots the size of your fist. * A fever >101 degrees F (38.3 degrees C) on two occasions four hours apart and /or chills. * Unusual pain in the pelvic or vaginal areas. * Call the doctor for any increased redness, drainage or swelling around the incision and any pain unrelieved by prescribed pain medication. * "Baby Blues" lasting longer than two weeks. If you have any questions or concerns, call your health care practitioner at . FOLLOW UP VISIT: * Please call the office at to schedule a 6 week examination. It is important you keep this appointment. It is important for you to make arrangements for either yearly or twice yearly check-ups thereafter. Current Hospital Diet Patient's current hospital diet: Regular OB Diet Discharge Diet Recommended Diet: Regular OB Diet Procedures Procedures Performed: Section with Bilateral Tubal Ligation Live male child delivered at 1110 Pending Studies Studies pending at discharge: no Medical Emergencies . Who to Call and When: Medical Emergencies: If at any time you feel your situation is an emergency, please call [phone] immediately. . Non-Emergent Contact Non-Emergency issues call your: Chargeback Analyst . . "Provider Documentation" section prepared by Darlene Huertas. . Taxation Inspector Recommendations Taxation Inspector Recommendations: FOLLOW UP WITH DR. SIERRA ORELLANA ON January FOR STAPLE REMOVAL
[2018-02-06] MEDS: OXYCODONE/ACETAMINOPHEN 5-325 TAB PO PRN ×4 (08:27→23:27)
[2018-02-06] MEDS: SIMETHICONE 80 MG CHEW PO SCH ×4 (08:28→20:31)
[2018-02-06] MEDS: IBUPROFEN 600 MG TAB PO PRN ×4 (08:28→23:28)
[2018-02-06] MEDS: FERROUS SULFATE 325 MG TAB PO SCH (08:28)
[2018-02-06] MEDS: PRENATAL VITAMIN TAB PO SCH (20:32)
[2018-02-06] MEDS: DOCUSATE SODIUM 100 MG CAP PO SCH (20:32)
[2018-02-06] MEDS ORDERED: BISACODYL 5 MG TABEC PO ONE (22:00)
[2018-02-07 06:59] LABS: HEMATOCRIT 22.9 % (37-47); HEMOGLOBIN 7.6 g/dL (12.0-16.0)
[2018-02-07] MEDS ORDERED: BISACODYL 10 MG SUPP PR PRN (07:00)
[2018-02-07] MEDS: FERROUS SULFATE 325 MG TAB PO SCH (07:45)
[2018-02-07] MEDS: SIMETHICONE 80 MG CHEW PO SCH (07:45)
[2018-02-07] MEDS: IBUPROFEN 600 MG TAB PO PRN (07:45)
[2018-02-07] MEDS: OXYCODONE/ACETAMINOPHEN 5-325 TAB PO PRN (07:46)
[2018-02-07 08:35] VITALS: BP 127/83; PULSE 91; TEMP 36.8
[2018-02-07] MEDS ORDERED: OXYC-57 PO (09:55)
--- NOTE | 2018-02-07 09:55 | Progress Note ---
Subjective Feb 07, 2018. Subjective conversation w/ patient, physical exam, lab review Ambulation: ambulating normally Voiding: no voiding problems Passing Gas: Yes Diet Tolerance: Regular Diet Lochia: Small Feeding Type: Bottle Feeding Pain: controlled with oral pain meds Objective Vital Signs Date Time Temp Pulse Resp B/P (MAP) Pulse Ox O2 Delivery O2 Flow Rate FiO2 02/07/18 08:35 36.8 91 20 127/83 (98) Room Air 02/07/18 07:45 Room Air 02/06/18 23:30 36.5 90 18 123/76 (92) Room Air 02/06/18 23:30 Room Air 02/06/18 15:30 97 Room Air 02/06/18 15:30 36.7 102 18 118/74 (89) 97 Room Air Physical Exam General Appearance: WELL-APPEARING, WD/WN, NO APPARENT DISTRESS Abdomen: non tender, soft Fundus: Firm, Non-Tender, Relation to Umbilicus (difficult secondary to habitus ) Incision Description: Clean, Dry & Intact (with shiv) Extremities: non-tender, normal inspection, + pedal edema (trace) Laboratory Results Last 24 Hours Test 02/07/18 06:38 Hemoglobin 7.6 g/dL Hematocrit 22.9 % Assessment and Plan Post-Op Day#: 2 Continue Routine Care: Patient doing well and she desires d/c. Instructions given. Shiv removed on .
[2018-02-07 11:50] VITALS: BP_DIAS 83; PULSE 91; TEMP 36.8
== END 2018-02-07 11:50 | disposition home or self-care (01) | DRG 766 ==
LOC: C.LD 07:12 → EDSTATUS 09:00 → C.OBG 18:33
PROVIDERS: ADMIT Obstetrics & Gynecology; ATTEND Obstetrics & Gynecology
PROC: 10D00Z1 Extraction of Products of Conception, Low, Open Approach (ICD-10-PCS; principal; 2018-02-05 09:00)
PROC: 0U570ZZ Destruction of Bilateral Fallopian Tubes, Open Approach (ICD-10-PCS; principal; 2018-02-05 09:00)
DX: O34.219 Maternal care for unspecified type scar from previous cesarean delivery (principal); O09.523 Supervision of elderly multigravida, third trimester; O69.81X1 Labor and delivery complicated by cord around neck, without compression, fetus 1; Z30.2 Encounter for sterilization; Z37.0 Single live birth; Z3A.39 39 weeks gestation of pregnancy

== ENCOUNTER 2018-02-11 13:43 | Emergency (ER) | payer BC ==
[~2018-02-11] VITALS: Ht 170.2 cm; Wt 138.7 kg
[~2018-02-11 13:43] MED LIST changes: +CHOL100010 PO; +OXYC-57 PO
[2018-02-11 13:47] VITALS: Ht 170.2 cm; Wt 138.7 kg
--- NOTE | 2018-02-11 14:42 | EMERGENCY ROOM VISIT NOTE ---
History Report prepared by Alonzo: Sebastian Page Under the Supervision of: Dr. José Gonzalez M.D. First contact with patient: 14:16 Chief Complaint: BLEEDING Stated Complaint: BLEEDING FROM C SECTION INCISION Nursing Triage Summary: on 02/05/18 bleeding noted from the left side of the incision [place] removed yesterday Reports bleeding is heavy History of Present Illness The patient is a 42 year old female who presents to the Emergency Room with complaints of worsening bleeding from her section incision that began today. The patient had a section on the 9th, 6 days ago and had her shiv removed on the 11th, 4 days ago. The patient states that the incision has been bleeding since the stables were removed, but this bleeding worsened significantly today. She called or OBGYN who directed her to come to the Emergency Department immediately. She has some abdominal pain at this time as well. Source of History: patient Onset: today Position: abdomen Quality: other (Bleeding) Timing: worsening Associated Symptoms: + abdominal pain Review of Systems See HPI for pertinent positives & negatives. A total of 10 systems reviewed and were otherwise negative. Past Medical & Surgical Medical Problems: (1) Advanced maternal age (AMA) in Family History Cancer Diabetes mellitus Hypertension Social History Smoking Status: Former Smoker Drug Use: none Marital Status: Housing Status: lives with family Current/Historical Medications Scheduled Docusate Sodium (Colace), 2 CAP PO QPM Multivit/Min/Iron/Fol Ac/Pren ( Vitamin), 1 TAB PO QPM [Iron], 1 TAB PO QPM Scheduled PRN Oxycodone/Acetaminophen 5MG/325MG (Percocet 5MG/325MG), 1-2 TABLETS PO Q4H PRN for Pain Allergies Coded Allergies: Penicillins (Verified Allergy, Unknown, HIVES, 02/11/18) Physical Exam Vital Signs Date Time Temp Pulse Resp B/P (MAP) Pulse Ox O2 Delivery O2 Flow Rate FiO2 02/11/18 16:21 37.0 84 18 153/92 96 02/11/18 15:37 84 18 153/92 96 Room Air 02/11/18 13:47 37.0 98 20 169/100 97 Room Air Physical Exam GENERAL: Awake, alert, well-appearing, in no acute distress HENT: Normocephalic, atraumatic. Oropharynx unremarkable. EYES: Normal conjunctiva. Sclera non-icteric. NECK: Supple. No nuchal rigidity. FROM. No JVD. RESPIRATORY: Clear to auscultation. CARDIAC: Regular rate, normal rhythm. Extremities warm and well perfused. Pulses equal. ABDOMEN: Soft, non-distended. No tenderness to palpation. No rebound or guarding. No masses. RECTAL: Deferred. MUSCULOSKELETAL: Chest examination reveals no tenderness. The back is symmetrical on inspection without obvious abnormality. There is no CVA tenderness to palpation. No joint edema. LOWER EXTREMITIES: Calves are equal size bilaterally and non-tender. No edema. No discoloration. NEURO: Normal sensorium. No sensory or motor deficits noted. SKIN: No rash or jaundice noted. I was able to express serous sanguinous fluid from the section incision. There is a hematoma below the surface. Medical Decision & Procedures ER Provider Diagnostic Interpretation: Radiology results as stated below per my review and radiologist interpretation: ABD/PELVIS IV CONTRAST ONLY CT DOSE: 1770.62 mGy.cm HISTORY: Pain. Edema. Pt c/o ceasarian bleeding TECHNIQUE: Multiaxial CT images of the abdomen and pelvis were performed following the use of intravenous contrast. A dose lowering technique was utilized adhering to the principles of ALARA. COMPARISON STUDY: 01/08/2009 FINDINGS: Lung bases are clear. Liver spleen and pancreas are unremarkable. Kidneys negative for hydronephrosis. Bowel pattern is considered nonobstructive. There is evidence for midline incision combined with enlargement of the uterus secondary to a prior section. Expected soft tissue changes are identified in the subcutaneous fat of the midline. There is no evidence for major collection or hematoma. There is no free fluid within the pelvic cul-de-sac. IMPRESSION: 1. Mild soft tissue edematous change of the subcutaneous fat anterior to the pelvis. 2. This, combined with a midline incision is considered unremarkable given the patient's recent section. 3. No evidence for hematoma abscess or abnormal fluid pocket. The above report was generated using voice recognition software. It may contain grammatical, syntax or spelling errors. Electronically signed by: Jason Jhaveri M.D. 02/11/2018 3:40 PM Dictated Date/Time: 02/11/2018 3:31 PM Laboratory Results 02/11/18 14:57 Red Blood Count 3.25, Mean Corpuscular Volume 88.0, Mean Corpuscular Hemoglobin 27.7, Mean Corpuscular Hemoglobin Concent 31.5, Mean Platelet Volume 8.8, Neutrophils (%) (Auto) 64.9, Lymphocytes (%) (Auto) 24.4, Monocytes (%) (Auto) 4.7, Eosinophils (%) (Auto) 4.7, Basophils (%) (Auto) 0.3, Neutrophils # (Auto) 3.76, Lymphocytes # (Auto) 1.41, Monocytes # (Auto) 0.27, Eosinophils # (Auto) 0.27, Basophils # (Auto) 0.02 02/11/18 14:57 Test 02/11/18 14:57 02/11/18 15:03 White Blood Count 5.79 K/uL (4.8-10.8) Red Blood Count 3.25 M/uL (4.2-5.4) Hemoglobin 9.0 g/dL (12.0-16.0) Hematocrit 28.6 % (37-47) Mean Corpuscular Volume 88.0 fL (80-100) Mean Corpuscular Hemoglobin 27.7 pg (25-34) Mean Corpuscular Hemoglobin Concent 31.5 g/dl (32-36) Platelet Count 268 K/uL (130-400) Mean Platelet Volume 8.8 fL (7.4-10.4) Neutrophils (%) (Auto) 64.9 % Lymphocytes (%) (Auto) 24.4 % Monocytes (%) (Auto) 4.7 % Eosinophils (%) (Auto) 4.7 % Basophils (%) (Auto) 0.3 % Neutrophils # (Auto) 3.76 K/uL (1.4-6.5) Lymphocytes # (Auto) 1.41 K/uL (1.2-3.4) Monocytes # (Auto) 0.27 K/uL (0.11-0.59) Eosinophils # (Auto) 0.27 K/uL (0-0.5) Basophils # (Auto) 0.02 K/uL (0-0.2) RDW Standard Deviation 49.9 fL (36.4-46.3) RDW Coefficient of Variation 15.4 % (11.5-14.5) Immature Granulocyte % (Auto) 1.0 % Immature Granulocyte # (Auto) 0.06 K/uL (0.00-0.02) Est Creatinine Clear Calc Drug Dose 137.5 ml/min Estimated GFR () 109.6 Estimated GFR (Non- 94.6 BUN/Creatinine Ratio 9.8 (10-20) Calcium Level 8.5 mg/dl (8.5-10.1) Total Bilirubin 0.3 mg/dl (0.2-1) Direct Bilirubin < 0.1 mg/dl (0-0.2) Aspartate Amino Transf (AST/SGOT) 38 U/L (15-37) Alanine Aminotransferase (ALT/SGPT) 39 U/L (12-78) Alkaline Phosphatase 77 U/L (45-117) Total Protein 6.5 gm/dl (6.4-8.2) Albumin 2.5 gm/dl (3.4-5.0) Lipase 125 U/L (73-393) Bedside Hemoglobin 8.2 g/dl (12.0-16.0) Bedside Hematocrit 24 % (37-47) Bedside Sodium 142 mEq/L (135-144) Bedside Potassium 3.5 mEq/L (3.3-5.0) Bedside Chloride 106 mEq/L (101-112) Bedside Total CO2 25 mEq/l (24-31) Anion Gap 16.0 mmol/L (16-25) Bedside Blood Urea Nitrogen 6 mg/dl (7-18) Bedside Creatinine 0.7 mg/dl (0.6-1.3) Bedside Glucose (other) 95 mg/dl (70-99) Bedside Ionized Calcium (Dwayne) 1.14 mmol/l (1.12-1.32) Labs reviewed by ED physician. ED Course 1434: Past medical records reviewed. The patient was evaluated in room C1A. A complete history and physical examination was performed. 1605: I discussed the case with a [facility] - OBGYN. She states that the patient is safe to be discharged home with follow-up this week. 1612: Upon reexamination the patient is resting in bed. I discussed results and treatment plan with the patient. she verbalizes agreement and understanding. The patient is ready for discharge. Medical Decision Differential diagnosis: Etiologies such as appendicitis, diverticulitis, PUD, biliary pathology, UTI, pancreatitis, obstruction, mesenteric ischemia, aortic pathology, infections, inflammatory bowel disease, renal colic, as well as others were entertained. This is a 42-year-old female who presents the emergency department complaining of fluid leaking from her section. This appears to be serosanguineous in nature and does not appear to be outright blood. In addition the patient does not have an elevation in her white blood cell count. Her hemoglobin appears to be recovering nicely. CAT scan of the abdomen and pelvis does not show any large hematoma. I did discuss the case with on-call OB who felt that the patient could be safely discharged follow-up in the office tomorrow. Patient and were in agreement with the treatment plan. Medication Reconcilliation Current Medication List: was personally reviewed by me Blood Pressure Screening Patient's blood pressure: Elevated blood pressure Blood pressure disposition: Referred to PCP Consults Time Called: 1601 Consulting Physician: [facility] - [facility]BGYN Returned Call: 1605 I discussed the case with a [facility] - OBGYN. She states that the patient is safe to be discharged home with follow-up this week. Impression Primary Impression: Fluid collection at surgical site Scribe Attestation The scribe's documentation has been prepared under my direction and personally reviewed by me in its entirety. I confirm that the note above accurately reflects all work, treatment, procedures, and medical decision making performed by me. Departure Information Dispostion Home / Self-Care Referrals Maricarmen Roach M.D. (PCP) Forms HOME CARE DOCUMENTATION FORM, IMPORTANT VISIT INFORMATION Patient Instructions My [facility] [address] Additional Instructions Follow up with DR Vasquez's office You have been examined and treated today on an emergency basis only. This is not a substitute for, or an effort to provide, complete comprehensive medical care. It is impossible to recognize and treat all injuries or illnesses in a single emergency department visit. It is therefore important that you follow up closely with Dr Roach. Call as soon as possible for an appointment. Thank you for your time and consideration. I look forward to speaking with you again soon. Please don't hesitate to call us if you have any questions. Problem Qualifiers Primary Impression: Fluid collection at surgical site Encounter type: initial encounter Qualified Codes: T88.8XXA - Other specified complications of surgical and medical care, not elsewhere classified, initial encounter
[2018-02-11] MEDS ORDERED: OXYC-57 PO (14:55)
[2018-02-11 15:08] LABS: BASO % 0.3 %; BASO ABS # 0.02 K/uL (0-0.2); EOS % 4.7 %; EOS ABS # 0.27 K/uL (0-0.5); HEMATOCRIT 28.6 % (37-47); IG# 0.06 K/uL (0.00-0.02); LYMPH % 24.4 %; LYMPH ABS # 1.41 K/uL (1.2-3.4); MEAN CORPUSCULAR HEMOGLOBIN 27.7 pg (25-34); MEAN CORPUSCULAR HGB CONC 31.5 g/dl (32-36); MEAN PLATELET VOLUME 8.8 fL (7.4-10.4); MONO % 4.7 %; MONO ABS # 0.27 K/uL (0.11-0.59); NEUT % 64.9 %; NEUT ABS # 3.76 K/uL (1.4-6.5); PLATELET COUNT 268 K/uL (130-400); RED CELL DISTRIBUTION WIDTH CV 15.4 % (11.5-14.5); RED CELL DISTRIBUTION WIDTH SD 49.9 fL (36.4-46.3); WHITE BLOOD COUNT 5.79 K/uL (4.8-10.8)
[2018-02-11] MEDS ORDERED: OPTIRAY 320 IV PRN (15:15)
[2018-02-11 15:16] LABS: ISTAT CREATININE 0.7 mg/dl (0.6-1.3); ISTAT IONIZED CALCIUM 1.14 mmol/l (1.12-1.32); ISTAT POTASSIUM 3.5 mEq/L (3.3-5.0)
[2018-02-11 15:25] LABS: ALBUMIN 2.5 gm/dl (3.4-5.0); ALT/SGPT 39 U/L (12-78); AST/SGOT 38 U/L (15-37); BLOOD UREA NITROGEN 8 mg/dl (7-18); CALCIUM 8.5 mg/dl (8.5-10.1); CARBON DIOXIDE 25 mmol/L (21-32); CREATININE 0.77 mg/dl (0.60-1.20); GLUCOSE 87 mg/dl (70-99); LIPASE 125 U/L (73-393); POTASSIUM 3.5 mmol/L (3.5-5.1); SODIUM 141 mmol/L (136-145)
[2018-02-11 15:28] LABS: ALKALINE PHOSPHATASE 77 U/L (45-117); TOTAL PROTEIN 6.5 gm/dl (6.4-8.2)
--- NOTE | 2018-02-11 15:41 | DIAGNOSTIC IMAGING REPORT ---
ABD/PELVIS IV CONTRAST ONLY CT DOSE: 1770.62 mGy.cm HISTORY: Pain. Edema. Pt c/o ceasarian bleeding TECHNIQUE: Multiaxial CT images of the abdomen and pelvis were performed following the use of intravenous contrast. A dose lowering technique was utilized adhering to the principles of ALARA. COMPARISON STUDY: 01/08/2009 FINDINGS: Lung bases are clear. Liver spleen and pancreas are unremarkable. Kidneys negative for hydronephrosis. Bowel pattern is considered nonobstructive. There is evidence for midline incision combined with enlargement of the uterus secondary to a prior section. Expected soft tissue changes are identified in the subcutaneous fat of the midline. There is no evidence for major collection or hematoma. There is no free fluid within the pelvic cul-de-sac. IMPRESSION: 1. Mild soft tissue edematous change of the subcutaneous fat anterior to the pelvis. 2. This, combined with a midline incision is considered unremarkable given the patient's recent section. 3. No evidence for hematoma abscess or abnormal fluid pocket. The above report was generated using voice recognition software. It may contain grammatical, syntax or spelling errors. Electronically signed by: Jason Jhaveri M.D. 02/11/2018 3:40 PM Dictated Date/Time: 02/11/2018 3:31 PM
[2018-02-11 16:21] VITALS: BP 153/92; PULSE 84; TEMP 37; O2SAT 96
== END 2018-02-11 16:23 | disposition home or self-care (01) ==
LOC: C.EDB 13:45 → C.EDC 16:23
DX: T88.8XXA Other specified complications of surgical and medical care, not elsewhere classified, initial encounter (principal); Y83.9 Surgical procedure, unspecified as the cause of abnormal reaction of the patient, or of later complication, without mention of misadventure at the time of the procedure; Z87.891 Personal history of nicotine dependence; Z80.9 Family history of malignant neoplasm, unspecified; Z83.3 Family history of diabetes mellitus; Z82.49 Family history of ischemic heart disease and other diseases of the circulatory system; Z88.0 Allergy status to penicillin